=== PATIENT | male | born 1945 | race Caucasian/White ===

== ENCOUNTER 2023-01-06 11:49 | Emergency (ER) | payer MEDICARE, SELFPAY ==
[2023-01-06] VITALS (40 sets, daily range): BP systolic 120–147; BP diastolic 81–114; PULSE 55–66; RESP 18; TEMP 36.4; O2SAT 93–98
--- NOTE | 2023-01-06 12:02 | CRLHL7_ITS ---
For Patients: As a result of the Century Cures Act, medical imaging exams and procedure reports are released immediately into your electronic medical record. You may view this report before your referring provider. If you have questions, please contact your health care provider. INDICATION: Amnesia TECHNIQUE: Noncontrast axial CT of the head. Coronal and sagittal reformats. Bone and soft tissue algorithms. COMPARISON: MRI brain report 06/21/2021 FINDINGS: The ventricles and cortical sulci appear age-appropriate. Occipital horn asymmetry is favored anatomic/physiologic variant. No midline shift or mass effect. No acute intracranial hemorrhage or extra-axial fluid collection. [place]-white matter differentiation is grossly maintained. White matter attenuation is within normal limits. Mineralization changes are noted in both globus pallidus. Intracranial vessels are unremarkable for technique. Midline structures are unremarkable. Bony calvarium appears grossly intact. Scattered mucosal thickening throughout the anterior ethmoid air cells, with frontal sinus/recess opacification left worse than right. Mild mucosal thickening along the inferior left maxillary sinus. No air-fluid level or mastoid effusion. Mild presumed cerumen bilateral external auditory canals. Unremarkable visualized orbits. IMPRESSION: 1. No CT evidence of acute intracranial abnormality. 2. Scattered paranasal sinus mucosal thickening/opacification as detailed. Please note that all CT scans at this facility use dose modulation, iterative reconstruction, and/or weight-based dosing when appropriate to reduce radiation dose to as low as reasonably achievable. Dictated by Margarita Graham MD @ 01/06/2023 12:53:17 PM (Electronically Signed)
--- NOTE | 2023-01-06 12:04 | ED_ITS ---
HPI - Altered Mental Status General Chief Complaint: Altered Mental Status Stated Complaint: possible stroke Time Seen by Provider: 01/06/23 11:54 History of Present Illness HPI narrative: This 77-year-old male comes in with his reporting amnesia symptoms over the past hour 2. He is not showing any sign of neurologic deficit. He does not have any report of symptoms of infection. His states that he was outside working in the garden and received a phone call from his son wishing a belated happy father's Day. After this phone call he did not remember this event when his asked him about it. He arrives with normal vital signs and exam but continues to have amnesia symptoms. Related Data Home Medications Medication Instructions Recorded Confirmed brimonidine 0.2 % eye drops 1 drp ophthalmic (eye) BID 01/06/23 01/06/23 dorzolamide 2 % eye drops 1 drp ophthalmic (eye) BID 01/06/23 01/06/23 rosuvastatin 5 mg tablet 5 mg PO QPM 01/06/23 01/06/23 timolol maleate 0.5 % eye drops 1 drp ophthalmic (eye) BID 01/06/23 01/06/23 Allergies Allergy/AdvReac Type Severity Reaction Status Date / Time fluticasone [From Flonase] AdvReac Verified 01/06/23 12:02 Review of Systems Status of ROS: Reports: unobtainable due to mental status Narrative: The patient states that he feels normal but has poor recall due to his current amnesia. Exam Narrative: Exam Narrative: Constitutional: Well-developed, well-nourished, no acute distress. HEENT: Normocephalic, atraumatic. Neck: Normal range of motion. Nontender. Supple. Heart: Regular. No murmurs. Normal rate. Intact distal pulses. Lungs: Clear to auscultation. No chest discomfort. No wheezes, rhonchi, or rales. Abdomen: Normal bowel sounds. Nontender. No rebound tenderness. Genitalia: Deferred. Back: No midline tenderness. Normal range of motion. Extremities: Normal range of motion. No injury. Skin: Intact. No rash. Warm. No erythema or pallor. Neurologic: No altered sensation. No weakness. Alert. No facial asymmetry. Tongue is midline. Degjla-ma-eihp is normal. No pronator drift. [employer] strength is equal bilaterally. He is able to raise each leg from the bed without difficulty. Psychiatric: No suicidality. No anxiety or depression. No insomnia. Nursing notes and vitals signs are reviewed. Const: Vital Signs, click to edit/add: Vital Signs - 24 hr 01/06/23 11:56 01/06/23 11:59 01/06/23 12:00 Temperature 97.5 F L Pulse Rate 63 65 Pulse Rate [Right Pulse Oximeter] 66 Respiratory Rate 18 Blood Pressure Blood Pressure [Ri ght Upper Arm] 147/109 H Pulse Oximetry 95 94 93 Oxygen Delivery Me thod Room Air 01/06/23 12:02 01/06/23 12:02 01/06/23 12:12 Temperature Pulse Rate 62 62 64 Pulse Rate [Right Pulse Oximeter] Respiratory Rate Blood Pressure 138/90 H 138/90 H 120/96 H Blood Pressure [Ri ght Upper Arm] Pulse Oximetry 95 95 93 Oxygen Delivery Me thod 01/06/23 12:20 01/06/23 12:25 01/06/23 12:30 Temperature Pulse Rate 64 60 62 Pulse Rate [Right Pulse Oximeter] Respiratory Rate Blood Pressure Blood Pressure [Ri ght Upper Arm] Pulse Oximetry 95 95 95 Oxygen Delivery Me thod 01/06/23 12:41 01/06/23 12:45 01/06/23 12:52 Temperature Pulse Rate 60 60 60 Pulse Rate [Right Pulse Oximeter] Respiratory Rate Blood Pressure 120/88 130/81 Blood Pressure [Ri ght Upper Arm] Pulse Oximetry 95 96 95 Oxygen Delivery Me thod 01/06/23 13:00 01/06/23 13:02 01/06/23 13:12 Temperature Pulse Rate 61 60 59 L Pulse Rate [Right Pulse Oximeter] Respiratory Rate Blood Pressure 126/93 H 138/88 Blood Pressure [Ri ght Upper Arm] Pulse Oximetry 96 94 97 Oxygen Delivery Me thod 01/06/23 13:15 01/06/23 13:22 01/06/23 13:30 Temperature Pulse Rate 61 60 58 L Pulse Rate [Right Pulse Oximeter] Respiratory Rate Blood Pressure 133/87 Blood Pressure [Ri ght Upper Arm] Pulse Oximetry 93 94 97 Oxygen Delivery Me thod 01/06/23 13:32 01/06/23 13:41 01/06/23 13:45 Temperature Pulse Rate 58 L 56 L 55 L Pulse Rate [Right Pulse Oximeter] Respiratory Rate Blood Pressure 144/94 H 125/89 Blood Pressure [Ri ght Upper Arm] Pulse Oximetry 96 95 95 Oxygen Delivery Me thod 01/06/23 13:52 01/06/23 14:00 01/06/23 14:02 Temperature Pulse Rate 59 L 56 L 60 Pulse Rate [Right Pulse Oximeter] Respiratory Rate Blood Pressure 132/94 H 132/94 H Blood Pressure [Ri ght Upper Arm] Pulse Oximetry 96 96 96 Oxygen Delivery Me thod 01/06/23 14:12 01/06/23 14:15 01/06/23 14:22 Temperature Pulse Rate 59 L 59 L 57 L Pulse Rate [Right Pulse Oximeter] Respiratory Rate Blood Pressure 134/85 136/89 Blood Pressure [Ri ght Upper Arm] Pulse Oximetry 97 95 96 Oxygen Delivery Me thod 01/06/23 14:30 01/06/23 14:32 01/06/23 14:41 Temperature Pulse Rate 59 L 59 L 57 L Pulse Rate [Right Pulse Oximeter] Respiratory Rate Blood Pressure 138/88 138/84 Blood Pressure [Ri ght Upper Arm] Pulse Oximetry 96 94 95 Oxygen Delivery Me thod 01/06/23 14:45 01/06/23 14:52 01/06/23 15:00 Temperature Pulse Rate 59 L 57 L 59 L Pulse Rate [Right Pulse Oximeter] Respiratory Rate Blood Pressure 137/84 Blood Pressure [Ri ght Upper Arm] Pulse Oximetry 96 95 98 Oxygen Delivery Me thod 01/06/23 15:02 01/06/23 15:03 01/06/23 15:16 Temperature Pulse Rate 60 61 56 L Pulse Rate [Right Pulse Oximeter] Respiratory Rate Blood Pressure 137/114 H Blood Pressure [Ri ght Upper Arm] Pulse Oximetry 97 98 95 Oxygen Delivery Me thod Course Vital Signs Vital signs: Initial Vital Signs Temperature 97.5 F L 01/06/23 11:56 Temperature Source Temporal Artery Scan 01/06/23 11:56 Pulse Rate 66 01/06/23 11:56 Respiratory Rate 18 01/06/23 11:56 Blood Pressure 147/109 H 01/06/23 11:56 Blood Pressure Mean 121 H 01/06/23 11:56 Blood Pressure Position Sitting 01/06/23 11:56 Pulse Oximetry 95 01/06/23 11:56 Oxygen Delivery Method Room Air 01/06/23 11:56 Vital Signs Temperature 97.5 F L 01/06/23 11:56 Pulse Rate 66 01/06/23 11:56 Respiratory Rate 18 01/06/23 11:56 Blood Pressure 147/109 H 01/06/23 11:56 Pulse Oximetry 95 01/06/23 11:56 Oxygen Delivery Method Room Air 01/06/23 11:56 Temperature 97.5 F L 01/06/23 11:56 Pulse Rate 56 L 01/06/23 15:16 Respiratory Rate 18 01/06/23 11:56 Blood Pressure 137/114 H 01/06/23 15:02 Pulse Oximetry 95 01/06/23 15:16 Oxygen Delivery Method Room Air 01/06/23 11:56 MDM - Altered Mental Status MDM Narrative Medical decision making narrative: This patient comes in with amnesia with regard to the events of the last hour to. This continued upon arrival here but his symptoms have resolved. He does not yet remember what happen during that short span of time but his states that his memory is functioning properly now. He was able to describe back early where he was in the process of reading a book that he is reading currently. He states that he feels normal. CT imaging of his head and lab results returned with reassuring findings. His possible that he may have had an episode of transient global amnesia. There are no signs of stroke or other more serious diagnoses happening here. At the time of discharge the patient appears safe for outpatient management. The treatment plan is reviewed along with written and verbal return precautions. Reasons to return and the importance of close followup were also reviewed. Lab Data Labs: Lab Results 01/06/23 01/06/23 01/06/23 Range/Units 12:03 12:16 12:16 WBC 9.02 (4.50-11.00) K/uL RBC 4.92 (4.30-5.90) m/uL Hgb 14.4 (13.5-17.5) gm/dL Hct 43.2 (37.0-53.0) % MCV 88 (80-100) fL MCH 29 (26-34) pg MCHC 33 (32-36) gm/dL RDW Coeff of Afua 12.9 (11.5-15.5) % Plt Count 279 (140-440) K/uL Neut % (Auto) 65.9 (42.0-72.0) % Lymph % (Auto) 22.8 (20-44) % [place] % (Auto) 6.4 (0.0-11.0) % Eos % (Auto) 4.3 (0.0-7.0) % Baso % (Auto) 0.3 (0.0-3.0) % Neut # (Auto) 5.93 (1.7-7.0) K/uL Lymph # (Auto) 2.06 (0.90-2.90) K/uL [place] # (Auto) 0.60 (0.00-0.90) K/UL Eos # (Auto) 0.39 (0.00-0.50) K/uL Baso # (Auto) 0.03 (0.00-0.30) K/uL Sodium 137 (135-149) mmol/L Potassium 4.0 (3.6-5.1) mmol/L Chloride 106 (96-114) mmol/L Carbon Dioxide 24 (20-32) mmol/L BUN 23 (7-30) mg/dL Creatinine 1.1 (0.5-1.5) mg/dL Estimated GFR 70 ml/min Glucose 100 (60-115) mg/dL Calcium 9.4 (8.4-10.6) mg/dL Total Bilirubin 0.5 Cancelled (0.1-1.5) mg/dL Direct Bilirubin 0.1 (0.0-0.5) mg/dL AST (12-35) U/L ALT (4-50) U/L Alkaline Phosphatase (40-150) U/L C-Reactive Protein (0.5-1.0) mg/dL Total Protein (6.0-8.3) g/dL Albumin (3.3-5.0) g/dL POC Troponin I 0.00 L (0.01-0.04) ng/ml 01/06/23 01/06/23 01/06/23 Range/Units 12:16 12:16 12:16 WBC (4.50-11.00) K/uL RBC (4.30-5.90) m/uL Hgb (13.5-17.5) gm/dL Hct (37.0-53.0) % MCV (80-100) fL MCH (26-34) pg MCHC (32-36) gm/dL RDW Coeff of Afua (11.5-15.5) % Plt Count (140-440) K/uL Neut % (Auto) (42.0-72.0) % Lymph % (Auto) (20-44) % [place] % (Auto) (0.0-11.0) % Eos % (Auto) (0.0-7.0) % Baso % (Auto) (0.0-3.0) % Neut # (Auto) (1.7-7.0) K/uL Lymph # (Auto) (0.90-2.90) K/uL [place] # (Auto) (0.00-0.90) K/UL Eos # (Auto) (0.00-0.50) K/uL Baso # (Auto) (0.00-0.30) K/uL Sodium (135-149) mmol/L Potassium (3.6-5.1) mmol/L Chloride (96-114) mmol/L Carbon Dioxide (20-32) mmol/L BUN (7-30) mg/dL Creatinine (0.5-1.5) mg/dL Estimated GFR ml/min Glucose (60-115) mg/dL Calcium (8.4-10.6) mg/dL Total Bilirubin (0.1-1.5) mg/dL Direct Bilirubin Cancelled (0.0-0.5) mg/dL AST 33 Cancelled (12-35) U/L ALT 27 Cancelled (4-50) U/L Alkaline Phosphatase 74 (40-150) U/L C-Reactive Protein (0.5-1.0) mg/dL Total Protein (6.0-8.3) g/dL Albumin (3.3-5.0) g/dL POC Troponin I (0.01-0.04) ng/ml 01/06/23 01/06/23 01/06/23 Range/Units 12:16 12:16 12:16 WBC (4.50-11.00) K/uL RBC (4.30-5.90) m/uL Hgb (13.5-17.5) gm/dL Hct (37.0-53.0) % MCV (80-100) fL MCH (26-34) pg MCHC (32-36) gm/dL RDW Coeff of Af[place] (11.5-15.5) % Plt Count (140-440) K/uL Neut % (Auto) (42.0-72.0) % Lymph % (Auto) (20-44) % [place] % (Auto) (0.0-11.0) % Eos % (Auto) (0.0-7.0) % Baso % (Auto) (0.0-3.0) % Neut # (Auto) (1.7-7.0) K/uL Lymph # (Auto) (0.90-2.90) K/uL [place] # (Auto) (0.00-0.90) K/UL Eos # (Auto) (0.00-0.50) K/uL Baso # (Auto) (0.00-0.30) K/uL Sodium (135-149) mmol/L Potassium (3.6-5.1) mmol/L Chloride (96-114) mmol/L Carbon Dioxide (20-32) mmol/L BUN (7-30) mg/dL Creatinine (0.5-1.5) mg/dL Estimated GFR ml/min Glucose (60-115) mg/dL Calcium (8.4-10.6) mg/dL Total Bilirubin (0.1-1.5) mg/dL Direct Bilirubin (0.0-0.5) mg/dL AST (12-35) U/L ALT (4-50) U/L Alkaline Phosphatase Cancelled (40-150) U/L C-Reactive Protein < 0.5 L Cancelled (0.5-1.0) mg/dL Total Protein 7.6 Cancelled (6.0-8.3) g/dL Albumin 4.5 (3.3-5.0) g/dL POC Troponin I (0.01-0.04) ng/ml 01/06/23 Range/Units 12:16 WBC (4.50-11.00) K/uL RBC (4.30-5.90) m/uL Hgb (13.5-17.5) gm/dL Hct (37.0-53.0) % MCV (80-100) fL MCH (26-34) pg MCHC (32-36) gm/dL RDW Coeff of Af[place] (11.5-15.5) % Plt Count (140-440) K/uL Neut % (Auto) (42.0-72.0) % Lymph % (Auto) (20-44) % [place] % (Auto) (0.0-11.0) % Eos % (Auto) (0.0-7.0) % Baso % (Auto) (0.0-3.0) % Neut # (Auto) (1.7-7.0) K/uL Lymph # (Auto) (0.90-2.90) K/uL [place] # (Auto) (0.00-0.90) K/UL Eos # (Auto) (0.00-0.50) K/uL Baso # (Auto) (0.00-0.30) K/uL Sodium (135-149) mmol/L Potassium (3.6-5.1) mmol/L Chloride (96-114) mmol/L Carbon Dioxide (20-32) mmol/L BUN (7-30) mg/dL Creatinine (0.5-1.5) mg/dL Estimated GFR ml/min Glucose (60-115) mg/dL Calcium (8.4-10.6) mg/dL Total Bilirubin (0.1-1.5) mg/dL Direct Bilirubin (0.0-0.5) mg/dL AST (12-35) U/L ALT (4-50) U/L Alkaline Phosphatase (40-150) U/L C-Reactive Protein (0.5-1.0) mg/dL Total Protein (6.0-8.3) g/dL Albumin Cancelled (3.3-5.0) g/dL POC Troponin I (0.01-0.04) ng/ml Imaging Data CT scan - head: Radiologist's impression: FINDINGS: The ventricles and cortical sulci appear age-appropriate. Occipital horn asymmetry is favored anatomic/physiologic variant. No midline shift or mass effect. No acute intracranial hemorrhage or extra-axial fluid collection. [place]-white matter differentiation is grossly maintained. White matter attenuation is within normal limits. Mineralization changes are noted in both globus pallidus. Intracranial vessels are unremarkable for technique. Midline structures are unremarkable. Bony calvarium appears grossly intact. Scattered mucosal thickening throughout the anterior ethmoid air cells, with frontal sinus/recess opacification left worse than right. Mild mucosal thickening along the inferior left maxillary sinus. No air-fluid level or mastoid effusion. Mild presumed cerumen bilateral external auditory canals. Unremarkable visualized orbits. IMPRESSION: 1. No CT evidence of acute intracranial abnormality. 2. Scattered paranasal sinus mucosal thickening/opacification as detailed. ECG Data Attestation: I personally reviewed and interpreted this ECG as follows: Interpretation: Normal sinus rhythm. Rate is 58 beats per minute. There are no ST or T-wave abnormalities. Discharge Plan Discharge Clinical Impression: TGA (transient global amnesia) Patient Disposition: Home w/ Parent or Adult Condition: Improved Additional Instructions: Continue current plans. Follow up with MD or return if symptoms are recurrent or worsening. Prescriptions: No Action brimonidine 0.2 % drops 1 drp ophthalmic (eye) BID timolol maleate 0.5 % drops 1 drp ophthalmic (eye) BID dorzolamide 2 % drops 1 drp ophthalmic (eye) BID rosuvastatin 5 mg tablet 5 mg PO QPM Follow Up/Referrals: Robyn Carroll DO [Primary Care Provider] - Stand Alone Forms: Everyone Counts Info Instructions
[2023-01-06 12:30] LABS: Basophils Absolute Auto 0.03 K/uL (0.00-0.30); Basophils Percent Auto 0.3 % (0.0-3.0); Eosinophils Absolute Auto 0.39 K/uL (0.00-0.50); Eosinophils Percent Auto 4.3 % (0.0-7.0); Hematocrit 43.2 % (37.0-53.0); Hemoglobin* 14.4 gm/dL (13.5-17.5); Immature Granulocytes Abs Auto 0.03 K/uL (0.00-0.30); Immature Granulocytes Pct Auto 0.3 %; Lymphocytes Absolute Auto 2.06 K/uL (0.90-2.90); Lymphocytes Percent Auto 22.8 % (20-44); Mean Corpuscular HGB Conc 33 gm/dL (32-36); Mean Corpuscular Hemoglobin 29 pg (26-34); Mean Corpuscular Volume 88 fL (80-100); Monocytes Percent Auto 6.4 % (0.0-11.0); Neutrophils Absolute Auto 5.93 K/uL (1.7-7.0); Neutrophils Percent Auto 65.9 % (42.0-72.0); Platelet Count* 279 K/uL (140-440); RDW Coefficient of Variation % 12.9 % (11.5-15.5); Red Blood Count 4.92 m/uL (4.30-5.90); White Blood Count* 9.02 K/uL (4.50-11.00)
[2023-01-06 12:35] LABS: Slide Review Reflex No
[2023-01-06 12:44] LABS: Albumin* 4.5 g/dL (3.3-5.0)
[2023-01-06 12:45] LABS: Chloride* 106 mmol/L (96-114); Sodium* 137 mmol/L (135-149)
[2023-01-06 12:47] LABS: Creatinine* 1.1 mg/dL (0.5-1.5); Estimated Glomerular Filt Rate 70 ml/min
[2023-01-06 12:48] LABS: Alanine Aminotransferase* 27 U/L (4-50); Alkaline Phosphatase* 74 U/L (40-150); Aspartate Amino Transferase* 33 U/L (12-35); Bilirubin Direct* 0.1 mg/dL (0.0-0.5); Bilirubin Total* 0.5 mg/dL (0.1-1.5); Blood Urea Nitrogen* 23 mg/dL (7-30); Carbon Dioxide* 24 mmol/L (20-32); Glucose* 100 mg/dL (60-115); Total Protein* 7.6 g/dL (6.0-8.3)
[2023-01-06 12:49] LABS: Calcium* 9.4 mg/dL (8.4-10.6)
[2023-01-06 12:52] LABS: C Reactive Protein* < 0.5 mg/dL (0.5-1.0)
== END 2023-01-06 15:54 | disposition home or self-care (01) ==
PROVIDERS: Emergency Provider Emergency Medicine Emergency Medical Services; PCP Family Medicine
DX: G45.4 Transient global amnesia (principal)
CPT/HCPCS: 36415; 70450; 80048; 80076; 84443; 84484; 85025; 86140; 93005; 99284

== ENCOUNTER 2023-10-29 13:00 | Outpatient (RCR) | payer MEDICARE, SELFPAY | END 2023-11-04 17:43 | disposition home or self-care (01) | PROVIDERS: PCP Family Medicine; Visit Provider Orthopaedic Surgery Orthopaedic Surgery of the Spine | DX: M54.2 Cervicalgia (principal); M19.90 Unspecified osteoarthritis, unspecified site; M48.02 Spinal stenosis, cervical region; M40.50 Lordosis, unspecified, site unspecified; M47.812 Spondylosis without myelopathy or radiculopathy, cervical region; Z51.89 Encounter for other specified aftercare | CPT/HCPCS: 97110; 97161; 97535 ==